=== PATIENT | female | born 1960 | race Two or more races ===

== ENCOUNTER → 2024-02-06 | Day surgery (SDC) | payer MEDICAID ==
[2024-01-31 11:02] LABS: Urine Bacteria None Seen /hpf (None Seen)
[2024-01-31 11:10] LABS: Basophils # (auto) 0 10 ^3/uL (0-0.2); Basophils % (auto) 0.5 % (0.0-2.0); Eosinophils # (auto) 0.1 10 ^3/uL (0-0.8); Eosinophils % (auto) 1.9 % (0.0-7.0); Hematocrit 40.8 % (36.0-46.0); Hemoglobin 13.8 g/dL (12.2-16.2); Lymphocytes # (auto) 2.7 10 ^3/uL (0.4-5.4); Lymphocytes % (auto) 42.6 % (10.0-50.0); Mean Corpuscular Hemoglobin 30.6 pg (28.0-32.0); Mean Corpuscular Hgb Conc. 33.8 g/dL (32.0-36.0); Mean Corpuscular Volume 90.5 fL (80.0-100.0); Monocytes # (auto) 0.6 10 ^3/uL (0-1.3); Monocytes % (auto) 9.2 % (0.0-12.0); Neutrophils # (auto) 2.9 10 ^3/uL (1.6-8.6); Neutrophils % (auto) 45.8 % (37.0-80.0); Nucleated Red Blood Cells % 0.1 %; Platelet Count (auto) 248 10^3/uL (140-450); White Blood Cell 6.3 10^3/uL (4.4-10.8)
[2024-01-31 11:28] LABS: INR 1.01 (0.9-1.15); Partial Thromboplastin Time 27.3 SEC (24.5-34.5); Prothrombin Time 10.7 sec (9.3-11.8)
[2024-01-31 11:54] LABS: Alanine Aminotransferase 18 U/L (7-40); Albumin 4.7 g/dL (3.2-4.8); Alkaline Phosphatase 109 U/L (46-116); Anion Gap 8 (5-15); Aspartate Aminotransferase 12 U/L (13-40); BUN/Creatinine Ratio 16.9 (10.0-20.0); Blood Urea Nitrogen 12 mg/dL (9-23); Carbon Dioxide 28 mmol/L (20-30); Chloride 106 mmol/L (98-107); Glucose 84 mg/dL (74-106); Potassium 4.1 mmol/L (3.5-5.1); Sodium 142 mmol/L (136-145)
[2024-01-31 11:55] LABS: Bilirubin, Total 0.9 mg/dL (0.2-1.0); Total Protein 7.5 g/dL (5.7-8.2)
[2024-01-31 12:15] LABS: Urine Blood 2+ /uL (Negative); Urine Clarity Clear (Clear); Urine Color Yellow (Yellow); Urine Mucus FEW (None Seen); Urine Protein, UAD Negative (Negative); Urine Specific Gravity 1.025 (1.001-1.035); Urine Urobilinogen Normal (Negative); Urine WBC 1 /hpf (0 - 5); Urine pH 5.5 (5.0-9.0)
[~2024-02-06] VITALS: Ht 152.4 cm; Wt 75.3 kg
[~2024-02-06] MED LIST: ASPI-498 OR; CEPH500C PO; CHOL200064 PO; DexAMETHasone SOD PHOS 10MG/1ML VIAL INJ ONE; HYDR1TAB97 PO; KETOROLAC TROMETH 30 MG/ML 1ML VIAL ONE; LIDOCAINE 1% INJ PF 5ML AMP ONE; LIDOCAINE HCL 100 MG/5ML (2%) SYRG INJ IV ONE; MIDAZOLAM HCL 2MG/2ML 2ml VIAL (1mg/ml) ONE; MORPHINE SULF PF 5 MG/10 ML VIAL ONE; MORPHINE SULFATE 4 MG/ML SYR/VIAL IV PRN; ONDANSETRON HCL 4 MG/2 ML VIAL ONE; ROPIVACAINE 0.5% (5MG/ML) 20ML AMPULE IJ ONE; SUGAMMADEX 200mg/2ml Vial (100MG/ML) IV ONE; ePHEDrine SULFATE 50 MG/ML AMP ONE; fentaNYL CITRATE 100 MCG/2 ML VL IV PRN
[2024-02-06] MEDS: BUPIVACAINE W/ EPINEPH 0.5% INJ 50ML MDV IJ ONE (07:20)
[2024-02-06] MEDS: EPINEPHrine HCL 1 MG/1 ML AMP ONE ×3 (07:20→09:12)
[2024-02-06] MEDS: ceFAZolin 2 GM/D5W100ml 100 ML IV ONE (07:24)
[2024-02-06] MEDS: TRANEXAMIC ACID 10 ML ONE (07:50)
[2024-02-06 09:37] VITALS: TEMP 97.3; O2SAT 99
[2024-02-06 10:15] VITALS: BP 110/63; PULSE 87; RESP 12; O2SAT 95
== END | disposition home or self-care (01) ==
LOC: SUR 06:32
PROVIDERS: ATTEND Orthopaedic Surgery Sports Medicine
DX: M75.121 Complete rotator cuff tear or rupture of right shoulder, not specified as traumatic (principal); S43.491A Other sprain of right shoulder joint, initial encounter; S46.211A Strain of muscle, fascia and tendon of other parts of biceps, right arm, initial encounter; M25.811 Other specified joint disorders, right shoulder; M65.811 Other synovitis and tenosynovitis, right shoulder; M94.211 Chondromalacia, right shoulder; K21.9 Gastro-esophageal reflux disease without esophagitis; E78.5 Hyperlipidemia, unspecified; Z98.890 Other specified postprocedural states; X58.XXXA Exposure to other specified factors, initial encounter; Y93.89 Activity, other specified; Y92.89 Other specified places as the place of occurrence of the external cause; Y99.8 Other external cause status
CPT/HCPCS: 29826; 29827; 29828; 36415; 80053; 81001; 85025; 85610; 85730; C1713; J0171; J1100; J1885; J2250; J2270; J2405; J2795; A4565